=== PATIENT | male | born 1960 | race Caucasian/White ===

== ENCOUNTER 2023-01-08 12:47 | Inpatient (IN) | payer MEDICAID ==
[~2023-01-08] VITALS: Ht 167.6 cm; Wt 87.5 kg
[2023-01-08 13:05] VITALS: BP 154/93; PULSE 102; RESP 20; TEMP 98.7; O2SAT 99
--- NOTE | 2023-01-08 13:10 | NUR ---
pt ambulatory ti bed 01
--- NOTE | 2023-01-08 13:26 | NUR ---
Pt bibs for "feeling sick" (sob, fever, cough) for several weeks. Pt does not see a regular provider and has not taken any medications for current ailments. Pt is a/o x 4, vss (with note to o2 sat), breathing equal and unlabored, speech clear. Pt on monitor awaiting provider.
[2023-01-08 14:08] LABS: BASOPHILS # (AUTO) 0.2 K/uL (0.00-0.22); BASOPHILS % (AUTO) 1.9 % (0.0-2.0); HEMOGLOBIN 9.6 g/dL (12.0-18.0); LYMPHOCYTES # (AUTO) 1.6 K/uL (2.0-11.5); LYMPHOCYTES % (AUTO) 17.1 % (20.5-51.1); MEAN CORPUSCULAR HEMOGLOBIN 37 pg (27-31); MEAN CORPUSCULAR HGB CONC 34 g/dL (33-37); MONOCYTES # (AUTO) 1.3 K/uL (0.8-1.0); MONOCYTES % (AUTO) 13.8 % (1.7-9.3); NEUTROPHILS # (AUTO) 6.4 K/uL (1.8-7.7); NEUTROPHILS % (AUTO) 67.2 % (42.2-75.2); PLATELET COUNT (AUTO) 224 K/uL (140-450); RED BLOOD CELL COUNT(AUTO) 2.59 MIL/uL (4.20-6.10); RED CELL DISTRIBUTION WIDTH 14.9 % (11.6-13.7); WHITE BLOOD COUNT (AUTO) 9.5 K/uL (4.8-10.8)
[2023-01-08 14:32] LABS: ALBUMIN 1.5 g/dL (3.4-5.0); ANION GAP 11.6 (8-16); ASPARTATE AMINOTRANSFERASE 73 U/L (15-37); CARBON DIOXIDE 22.9 mmol/L (21-32); CHLORIDE 102 mmol/L (98-107); CREATININE 1.3 mg/dL (0.6-1.3); GFR ARICAN-AMERICAN 72 mL/min (>90); GLUCOSE 181 mg/dL (74-106); LIPASE 319 U/L (73-393); POTASSIUM 3.5 mmol/L (3.5-5.1); SODIUM SERUM 133 mmol/L (136-145); TOTAL BILIRUBIN 4.4 mg/dL (0.0-1.0); UREA NITROGEN, BLOOD 14 mg/dL (7-18)
[2023-01-08] MEDS ORDERED: cefTRIAXone 1,000 MG in DEXT 5% MINI-BAG PLUS 50 ML IV ONE (14:55)
[2023-01-08] MEDS ORDERED: NACL 0.9% 1,000 ML IV SCH (14:55)
[2023-01-08] MEDS ORDERED: cefTRIAXone 1,000 MG VIAL ONE (15:32)
[2023-01-08] MEDS ORDERED: ONDANSETRON 4 MG/2 ML VIAL IVP PRN (16:45)
[2023-01-08] MEDS ORDERED: HYDROcodone/APAP 5/325 MG 1 TAB TAB PO PRN ×2 (16:45)
--- NOTE | 2023-01-08 17:05 | NUR ---
US at bedside. Pt tolerating well. No complaints at this time. Pt resting in bed. Vss (with note to bp, md aware), breathing equal and unlabored, speech clear, on monitor.
[2023-01-08] MEDS: FUROSEMIDE 40 MG/4 ML VIAL IVP SCH (17:45)
--- NOTE | 2023-01-08 17:55 | NUR ---
Report given to RN Stone. Pt still aware of need for UA but has not urinated. Pt in stable condition. Vss, no ss of acute disress, a/o x 4, breathing equal and unlabored, speech clear. Pt transported by emt.
[2023-01-08 19:00] VITALS: PULSE 100; RESP 18; O2SAT 92
--- NOTE | 2023-01-08 19:30 | NUR ---
RECEIVED REPORT FROM DAY SHIFT RN FOR CONTINUITY OF CARE. PT IS AAOX4 [place] SPEAKER. PT IS ON NC 4L SATING 92%. PT IS AMBULATORY. GAIT STEADY. EDUCATED PT TECHNICAL CABLE JOINTER LIGHT SYSTEM AND ROOM ENVIRONMENT. POC DISCUSSED. WILL CONTINUE TO MONITOR THE PT.
[2023-01-08 20:00] VITALS: BP 130/77; PULSE 93; RESP 18; TEMP 97.3; O2SAT 92
--- NOTE | 2023-01-09 00:30 | NUR ---
OBSERVED PT. PT IS SLEEPING COMFORTABLY IN BED. NOT IN ANY DISTRESS. BREATHING EVEN AND UNLABORED. WILL CONTINUE TO MONITOR THE PT.
[2023-01-09 04:00] VITALS: BP 138/85; PULSE 95; RESP 18; TEMP 97.3; O2SAT 92
--- NOTE | 2023-01-09 04:00 | NUR ---
VITAL SIGNS TAKEN AND STABLE. PT DENIES ANY PAIN. HAS NO COMPLAINS. WILL CONTINUE TO MONITOR THE PT.
[2023-01-09 07:09] LABS: BASOPHILS # (AUTO) 0.1 K/uL (0.00-0.22); BASOPHILS % (AUTO) 1.2 % (0.0-2.0); HEMATOCRIT 25.4 % (36-52); HEMOGLOBIN 8.8 g/dL (12.0-18.0); LYMPHOCYTES # (AUTO) 1.8 K/uL (2.0-11.5); LYMPHOCYTES % (AUTO) 17.1 % (20.5-51.1); MEAN CORPUSCULAR HEMOGLOBIN 37 pg (27-31); MEAN CORPUSCULAR HGB CONC 35 g/dL (33-37); MEAN CORPUSCULAR VOLUME 107.7 fL (80-94); MONOCYTES # (AUTO) 1.5 K/uL (0.8-1.0); MONOCYTES % (AUTO) 14.5 % (1.7-9.3); NEUTROPHILS # (AUTO) 7.1 K/uL (1.8-7.7); NEUTROPHILS % (AUTO) 67.2 % (42.2-75.2); PLATELET COUNT (AUTO) 206 K/uL (140-450); RED BLOOD CELL COUNT(AUTO) 2.36 MIL/uL (4.20-6.10); RED CELL DISTRIBUTION WIDTH 14.8 % (11.6-13.7); WHITE BLOOD COUNT (AUTO) 10.5 K/uL (4.8-10.8)
--- NOTE | 2023-01-09 07:12 | NUR ---
ENDORSED PT TO DAY SHIFT RN FOR CONTINUITY OF CARE. PT IS STABLE.
--- NOTE | 2023-01-09 07:13 | NUR ---
RECEIVED PT FROM HIMS CODER NURSE FOR CONTINUITY OF CARE. PT IS AWAKE, AOX4 AMBULATING IN ROOM. RESPIRATIONS EVEN AND UNLABORED ON RA O2 SATURATING 93%. NO DISTRESS NOTED. SKIN WARM AND DRY, ABDOMEN DISTENDED ON UL AND UR QUADRANT, LL AND LR QUADRANT SOFT. PT DENIES PAIN AT THIS TIME. IV ON R F/A 20G, SL. CALL LIGHT WITHIN REACH, ALL SAFETY PRECAUTIONS IN PLACE.
[2023-01-09 07:27] LABS: ANION GAP 10.8 (8-16); CARBON DIOXIDE 22.8 mmol/L (21-32); CREATININE 1.1 mg/dL (0.6-1.3); POTASSIUM 3.6 mmol/L (3.5-5.1)
[2023-01-09 08:00] VITALS: BP 144/88; PULSE 98; RESP 18; TEMP 97.7; O2SAT 92; O2SAT 93
--- NOTE | 2023-01-09 08:00 | NUR ---
Patient's Plan of Care was discussed and reviewed with DE ALCOHOLIZER: RUBENS
[2023-01-09 08:08] LABS: HEPATITIS A ANTIBODY IGM Negative (Negative); HEPATITIS B CORE AB TOTAL Negative (Negative); HEPATITIS B SURFACE ANTIBODY Non Reactive (.); HEPATITIS B SURFACE ANTIGEN Negative (Negative)
[2023-01-09] MEDS: ENOXAPARIN 40 MG/0.4 ML SYR SUBQ SCH (08:44)
[2023-01-09] MEDS: FUROSEMIDE 40 MG/4 ML VIAL IVP SCH ×2 (10:07→17:33)
[2023-01-09 16:00] VITALS: BP 143/82; PULSE 103; RESP 20; TEMP 99.5; O2SAT 94
[2023-01-09 18:43] LABS: APPEARANCE,URINE CLEAR (CLEAR); BILIRUBIN,URINE NEGATIVE (NEGATIVE); BLOOD, URINE 3+ (NEGATIVE); COLOR,URINE YELLOW (YELLOW); LEUKOCYTE ESTERASE ,URINE NEGATIVE (NEGATIVE); NITRITE, URINE NEGATIVE (NEGATIVE); UGLUCOSE NEGATIVE (NEGATIVE)
--- NOTE | 2023-01-09 19:15 | NUR ---
ENDORSED PT TO SQUEEGEE OPERATOR NURSE FOR CONTINUITY OF CARE. PT IS STABLE.
[2023-01-09 19:19] LABS: TRICHOMONAS,URINE None Seen /HPF (None Seen); YEAST,URINE None Seen /HPF (None Seen)
--- NOTE | 2023-01-09 19:30 | NUR ---
RECEIVED REPORT FROM DAY SHIFT NURSE FOR CONTINUITY OF CARE. PT IS AAOX4 CITIZEN OF [place] SPEAKER. PT IS ON NC 3L SATING 94%. PT IS AMBULATORY. GAIT STEADY. DENIES ANY PAIN AND SOB. SKIN WARM AND DRY. POC DISCUSSED. WILL CONTINUE TO MONITOR THE PT.
[2023-01-09 20:00] VITALS: PULSE 98; RESP 18; RESP 20; O2SAT 93; O2SAT 94
[2023-01-10] VITALS (7 sets, daily range): BP systolic 126–139; BP diastolic 80–88; PULSE 89–105; RESP 18–20; TEMP 97.8–99.8; O2SAT 93–100
--- NOTE | 2023-01-10 00:30 | NUR ---
OBSERVED PT. PT IS SLEEPING COMFORTABLY IN BED. NOT IN ANY DISTRESS. BREATHING EVEN AND UNLABORED. SAFETY MEASURES TAKEN. WILL CONTINUE TO MONITOR THE PT.
--- NOTE | 2023-01-10 04:00 | NUR ---
VITAL SIGNS TAKEN AND STABLE. NO COMPLAINS FROM PT. DENIES ANY PAIN. WILL CONTINUE TO MONITOR.
[2023-01-10 07:03] LABS: BASOPHILS # (AUTO) 0.2 K/uL (0.00-0.22); BASOPHILS % (AUTO) 2.5 % (0.0-2.0); HEMATOCRIT 24.8 % (36-52); HEMOGLOBIN 8.7 g/dL (12.0-18.0); LYMPHOCYTES # (AUTO) 1.7 K/uL (2.0-11.5); MEAN CORPUSCULAR HEMOGLOBIN 38 pg (27-31); MEAN CORPUSCULAR HGB CONC 35 g/dL (33-37); MEAN CORPUSCULAR VOLUME 107.7 fL (80-94); MONOCYTES # (AUTO) 1.4 K/uL (0.8-1.0); NEUTROPHILS # (AUTO) 5.2 K/uL (1.8-7.7); PLATELET COUNT (AUTO) 192 K/uL (140-450); RED CELL DISTRIBUTION WIDTH 14.7 % (11.6-13.7); WHITE BLOOD COUNT (AUTO) 8.5 K/uL (4.8-10.8)
--- NOTE | 2023-01-10 07:17 | NUR ---
ENDORSED PT TO DAY SHIFT RN FOR CONTINUITY OF CARE. PT IS STABLE.
--- NOTE | 2023-01-10 07:18 | NUR ---
RECEIVED PT FROM RAW SAMPLER NURSE FOR CONTINUITY OF CARE. PT IS AWAKE, AOX4. PT SITTING AT BED. ON 3L VIA NC. NO SOB, PT DENIES PAIN. SKIN WARM AND DRY. IV ON R F/A 20G, SL. CALL LIGHT WITHIN REACH. ALL SAFETY PRECAUTIONS IN PLACE.
--- NOTE | 2023-01-10 07:30 | NUR ---
RECEIVED PT ON 3L NASAL CANNULA. SATURATION 97%. NO SOB. EQUAL CHEST RISE, CLEAR BREATH SOUNDS. PT REST COMFORTABLY. WILL CONTINUE TO MONITOR.
[2023-01-10 07:33] LABS: ALBUMIN 1.3 g/dL (3.4-5.0); ANION GAP 11.9 (8-16); CREATININE 1.3 mg/dL (0.6-1.3); TOTAL BILIRUBIN 3.3 mg/dL (0.0-1.0)
[2023-01-10 07:39] LABS: LYMPHOCYTES % (AUTO) 19.9 % (20.5-51.1); MONOCYTES % (AUTO) 16.5 % (1.7-9.3); NEUTROPHILS % (AUTO) 61.1 % (42.2-75.2)
[2023-01-10 07:44] LABS: POTASSIUM 2.9 mmol/L (3.5-5.1)
--- NOTE | 2023-01-10 08:00 | NUR ---
Patient's Plan of Care was discussed and reviewed with HR PAYROLL COORDINATOR: RUBENS
[2023-01-10] MEDS ORDERED: POTASSIUM CHLORIDE 40 MEQ, LIDOCAINE 1% 25 MG in NACL 0.9% 250 ML IV ONE (08:10)
[2023-01-10] MEDS: ENOXAPARIN 40 MG/0.4 ML SYR SUBQ SCH (08:47)
--- NOTE | 2023-01-10 08:55 | NUR ---
PATIENT HAS BEEN SCREENED AND CATEGORIZED MODERATE NUTRITION RISK. PATIENT WILL BE SEEN WITHIN 3-5 DAYS OF ADMISSION. 01/08/23-01/13/[address]
[2023-01-10] MEDS ORDERED: POTASSIUM CHLORIDE 40 MEQ, LIDOCAINE 1% 25 MG in NACL 0.9% 250 ML IV SCH (09:00)
[2023-01-10] MEDS: FUROSEMIDE 40 MG/4 ML VIAL IVP SCH ×2 (10:20→17:14)
[2023-01-10] MEDS ORDERED: KCL 20 MEQ IN 100 mL PREMIX 200 ML IV ONE (11:00)
--- NOTE | 2023-01-10 19:29 | NUR ---
ENDORSED PT TO ZINC PLATER NURSE FOR CONTINUITY OF CARE. PT IS STABLE.
--- NOTE | 2023-01-10 19:29 | NUR ---
RECEIVED ENDORSEMENT FROM DAY SHIFT NURSE. PT IS AWAKE AND ALERT, ABLE TO VERBALIZED NEEDS. PT DENIES OF PAIN. SKIN INTACT. IV SITE IS ON RIGHT FOREARM 20G.
--- NOTE | 2023-01-11 00:15 | NUR ---
PT SLEEPS WELL, NO FACIAL GRIMACING. PT IS WITH O2 INHALATION AT 3 LPM. NO SOB OR DISTRESS.
[2023-01-11 04:00] VITALS: BP 147/78; PULSE 90; RESP 18; TEMP 98.4; O2SAT 92
[2023-01-11 06:08] LABS: BASOPHILS # (AUTO) 0.2 K/uL (0.00-0.22); BASOPHILS % (AUTO) 2.3 % (0.0-2.0); EOSINOPHILS % (AUTO) 0.1 % (0.0-4.0); HEMATOCRIT 25.7 % (36-52); HEMOGLOBIN 9.1 g/dL (12.0-18.0); LYMPHOCYTES # (AUTO) 1.8 K/uL (2.0-11.5); LYMPHOCYTES % (AUTO) 18.7 % (20.5-51.1); MEAN CORPUSCULAR HEMOGLOBIN 38 pg (27-31); MEAN CORPUSCULAR HGB CONC 35 g/dL (33-37); MEAN CORPUSCULAR VOLUME 107.7 fL (80-94); MONOCYTES # (AUTO) 1.7 K/uL (0.8-1.0); NEUTROPHILS # (AUTO) 5.8 K/uL (1.8-7.7); NEUTROPHILS % (AUTO) 60.9 % (42.2-75.2); PLATELET COUNT (AUTO) 187 K/uL (140-450); RED BLOOD CELL COUNT(AUTO) 2.38 MIL/uL (4.20-6.10); RED CELL DISTRIBUTION WIDTH 14.7 % (11.6-13.7); WHITE BLOOD COUNT (AUTO) 9.6 K/uL (4.8-10.8)
[2023-01-11 06:16] LABS: ANION GAP 10.7 (8-16); CARBON DIOXIDE 24.1 mmol/L (21-32); CREATININE 1.2 mg/dL (0.6-1.3)
[2023-01-11 06:22] LABS: POTASSIUM 2.8 mmol/L (3.5-5.1)
--- NOTE | 2023-01-11 06:30 | NUR ---
RECEIVED MESSAGE FROM LAB FOR POTASSIUM RESULTS OF 2.8.
[2023-01-11] MEDS ORDERED: ALBUTEROL SULFATE/IPRATROPIU 3 ML SOL IH PRN (06:40)
--- NOTE | 2023-01-11 06:55 | NUR ---
MESSAGE DR. BARON FOR POTASSIUM RESULT 2.8. WAITING FOR REPLY.
[2023-01-11 07:39] VITALS: PULSE 90; RESP 20; O2SAT 94
--- NOTE | 2023-01-11 07:39 | NUR ---
RECEIVED ON SUPPLEMENTAL OXYGEN AT 4 LPM VIA NC SATURATION 94%; C/O SOB HHN PRN THERAPY GIVEN; POST THERAPY ADDED HUMIDIFIER
--- NOTE | 2023-01-11 07:50 | NUR ---
TOLERATED INCENTIVE SPIROMETRY THERAPY WELL WITHOUT COMPLICATIONS ENCOURAGED PATIENT TO USE INCENTIVE SPIROMETRY EVERY 1-2 HOURS WHILE AWAKE
[2023-01-11 08:00] VITALS: PULSE 105; RESP 20; O2SAT 95; O2SAT 96
[2023-01-11] MEDS ORDERED: KCL 20 MEQ IN 100 mL PREMIX 200 ML IV SCH (08:15)
[2023-01-11] MEDS ORDERED: POTASSIUM CHLORIDE 10 MEQ TABER PO SCH (08:15)
[2023-01-11] MEDS: ENOXAPARIN 40 MG/0.4 ML SYR SUBQ SCH (08:26)
[2023-01-11] MEDS: SPIRONOLACTONE 50 MG TAB PO SCH (08:28)
[2023-01-11] MEDS: FUROSEMIDE 40 MG TAB PO SCH (08:28)
--- NOTE | 2023-01-11 13:27 | NUR ---
DC PLANNIN YRS OLD MALE PATIENT WAS ADMITTED FROM HOME WITH A DX OF GENERALIZE WEAKNESS, NEW ONSET OF HEART FAILURE. PATIENT HAS NO MEDICAL HX. CXR SHOWED LOW LUNG VOLUMES WITH BILATERAL EDEMA/INFILTRATES. ABDOMINAL US SHOWED HEPATIC CIRRHOSIS AND PERIHEPATIC ASCITES AND MULTIPLE SMALL HEPATIC MASSES. RAPID COVID TEST NEGATIVE. INFLUENZA A&B ARE POSITIVE. ADMINISTERED IV ABX ROCEPHIN . SEEN BY ELECTRONIC CONTROLS REPAIRER SUPERVISOR GI AND ID. DC PLAN TO FOLLOW UP WITH OUT PT ONCOLOGIST. CM TO FOLLOW Addendum: 01/12/23 at 1351 by Cynthia Velez RN DC PLANNING: CM CALLED DR AMARO'S OFFICE FOR FOLLOW UP VISIT PER MEDICAL INFORMATION SPECIALIST STATED THEY DON'T TAKE MEDICAL PE AND RECOMMENDED TO SET UP OUTPT FOLLOW U. CM CALLED [facility] STATED TO SCHEDULE THE APPOINTMENT PATIENT HAS TO BE DISCHARGED AND TO CALL TO MAKE APPOINTMENT. PROVIDE THE NUMBER TO THE PATIENT [phone] CM TO FOLLOW Addendum: 01/12/23 at 1452 by PAULO BHANDARI CM [facility] FOLLOW UP APPOINTMENT WITH [facility] LOCATED AT [address] [place] [id number]. SPOKE WITH MYNOR WHO GAVE ME AN APPOINTMENT FOR 01/14/2023 AT 1030. WENT TO BEDSIDE TO GIVE APPOINTMENT SLIP AND [facility] NUMBER INFORMING HIM THAT ONCE DISCHARGED HE HAS TO CALL AND MAKE APPOINTMENT HIM SELF PER MIKE [facility]CADA.
--- NOTE | 2023-01-11 13:53 | NUR ---
01/11/23 RD INITIAL ASSESSMENT COMPLETED PLEASE REFER TO NUTRITION ASSESSMENT UNDER CARE ACTIVITY FOR ESTIMATED NUTRITIONAL NEEDS. 1. CONTINUE CARDIAC DIET TOLERATED 2. RD WILL MONITOR PO INTAKE, WEIGHTS, GI SYMPTOMS AND SKIN INTEGRITY. 3. RD TO FOLLOW-UP 3-5 DAYS, MODERATE RISK MERISSA MCINTYRE, RD
[2023-01-11 16:00] VITALS: BP 124/71; PULSE 64; RESP 18; TEMP 97.3; O2SAT 97
[2023-01-11 19:19] VITALS: O2SAT 100
--- NOTE | 2023-01-11 19:20 | NUR ---
RECEIVED PT ON BED AWAKE, ALERT AND VERBALLY RESPONSIVE. PT VERBALIZED OF MILD, TOLERABLE PAIN ON EPIGASTRIC AREA. NO EDEMA ON BLE & BUE.
[2023-01-11 19:23] LABS: ANION GAP 12.3 (8-16); CARBON DIOXIDE 23.3 mmol/L (21-32); CREATININE 1.3 mg/dL (0.6-1.3); POTASSIUM 3.6 mmol/L (3.5-5.1)
[2023-01-11 20:00] VITALS: BP 148/79; PULSE 100; RESP 20; TEMP 101.1; O2SAT 94
--- NOTE | 2023-01-11 20:36 | NUR ---
PT HAS ELEVATED TEMP OF 101.1, REPORTED TO DR. BARON. NO NEW ORDER. APPLY COOLING MEASURES TO PT AND ENCOURAGE TO DRINK MORE.
--- NOTE | 2023-01-11 21:10 | NUR ---
CHECKED BODY TEMP = 100.7
--- NOTE | 2023-01-11 21:40 | NUR ---
BODY TEMP CHECKED = 99.6
--- NOTE | 2023-01-11 22:18 | NUR ---
PT VERBALIZED PAIN ON ABDOMINAL AND EPIGASTRIC AREA /10, PAIN MEDICATION NORCO 1 TAB ADMINISTERED ORDER.
[2023-01-11] MEDS ORDERED: ACETAMINOPHEN EXTRA STRENGTH 500 MG TAB PO PRN (22:35)
--- NOTE | 2023-01-11 23:18 | NUR ---
REASSESSMENT OF PAIN, PT ASLEEP, NO FACIAL GRIMACING
[2023-01-12] VITALS (7 sets, daily range): BP systolic 135–153; BP diastolic 75–87; PULSE 81–96; RESP 17–20; TEMP 97.7–98.7; O2SAT 93–98
--- NOTE | 2023-01-12 00:20 | NUR ---
PT BODY TEMP = 98.2
--- NOTE | 2023-01-12 04:00 | NUR ---
BODY TEMP = 98.5
--- NOTE | 2023-01-12 06:00 | NUR ---
BODY TEMP = 98.2. PT VERBALIZED ABLE TO SLEEP GOOD.
[2023-01-12 06:56] LABS: ANION GAP 9.8 (8-16); CARBON DIOXIDE 23.5 mmol/L (21-32); CREATININE 1.2 mg/dL (0.6-1.3); POTASSIUM 3.3 mmol/L (3.5-5.1)
[2023-01-12 07:00] LABS: BASOPHILS # (AUTO) 0.2 K/uL (0.00-0.22); BASOPHILS % (AUTO) 1.5 % (0.0-2.0); HEMATOCRIT 23.7 % (36-52); HEMOGLOBIN 8.2 g/dL (12.0-18.0); LYMPHOCYTES # (AUTO) 2.3 K/uL (2.0-11.5); LYMPHOCYTES % (AUTO) 18.6 % (20.5-51.1); MEAN CORPUSCULAR HEMOGLOBIN 38 pg (27-31); MEAN CORPUSCULAR HGB CONC 34 g/dL (33-37); MONOCYTES # (AUTO) 2.4 K/uL (0.8-1.0); MONOCYTES % (AUTO) 19.2 % (1.7-9.3); NEUTROPHILS # (AUTO) 7.6 K/uL (1.8-7.7); NEUTROPHILS % (AUTO) 60.7 % (42.2-75.2); PLATELET COUNT (AUTO) 179 K/uL (140-450); RED BLOOD CELL COUNT(AUTO) 2.18 MIL/uL (4.20-6.10); RED CELL DISTRIBUTION WIDTH 15.1 % (11.6-13.7); WHITE BLOOD COUNT (AUTO) 12.5 K/uL (4.8-10.8)
--- NOTE | 2023-01-12 07:20 | NUR ---
PT IS ON STABLE CONDITION, SAFETY MEASURES ARE IN PLACE, ENDORSE TO DAY SHIFT NURSE FOR CONTINUITY OF CARE.
--- NOTE | 2023-01-12 07:21 | NUR ---
RECEIVED PT FROM TREASURY ANALYST NURSE FOR CONTINUITY OF CARE. PT IS AWAKE, AOX4. ABLE TO VERBALIZE NEEDS. ON 3L NC SATURATING AT 97%. NO DISTRESS NOTED. SKIN WARM AND DRY TO TOUCH. ABDOMEN DISTENDED. PT DENIES ANY PAIN. IV ON R F/A 20G, SL. CALL LIGHT WITHIN REACH, ALL SAFETY PRECAUTIONS IN PLACE.
[2023-01-12 07:23] LABS: PROTHROMBIN TIME 15.6 secs (10.8-13.4)
--- NOTE | 2023-01-12 07:56 | NUR ---
ROUNDED ON PT. NO DISTRESS NOTED. VITALS WERE GOOD PT AWAKE AND ALERT. WILL CONTINUE TO MONITOR.
--- NOTE | 2023-01-12 08:04 | NUR ---
RT CALLED PT NOW ON 2L NC, O2 SATURATING 96%.
[2023-01-12] MEDS ORDERED: POTASSIUM CHLORIDE 10 MEQ TABER PO SCH (08:17)
[2023-01-12] MEDS: SPIRONOLACTONE 50 MG TAB PO SCH (08:28)
[2023-01-12] MEDS: FUROSEMIDE 40 MG TAB PO SCH (08:29)
--- NOTE | 2023-01-12 08:30 | NUR ---
SCHEDULED MORNING MEDS GIVEN, LOVENOX HELD DUE TO SCHEDULED PROCEDURE TODAY.
[2023-01-12] MEDS: ENOXAPARIN 40 MG/0.4 ML SYR SUBQ SCH (08:38)
[2023-01-12] MEDS: PIPERACILLIN/TAZOBACTAM 3.375 GM in DEXTROSE 5% 50 ML IV SCH ×2 (13:00→20:03)
--- NOTE | 2023-01-12 19:05 | NUR ---
ENDORSE PT TO CAUSTIC STRENGTH INSPECTOR NURSE FOR CONTINUITY OF CARE. PT IS STABLE.
--- NOTE | 2023-01-12 19:05 | NUR ---
RECEIVED PT IN BED ASLEEP, EASILY AROUSABLE BY VERBAL STIMULI. DENIES PAIN AT THIS TIME. NO RESPIRATORY DISTRESS. SKIN WARM AND DRY TO TOUCH. SAFETY PRECAUTIONS IN [place], CALL LIGHT IN REACH, ENCOURAGED TO CALL IF ASSISTANCE IS NEEDED, PT VERBALLY ACKNOWLEDGED.
[2023-01-12] MEDS: OSELTAMIVIR PHOSPHATE 75 MG CAP PO SCH (20:03)
[2023-01-12 20:38] LABS: APPEARANCE,SPUN,BODY FLUID CLEAR (CLEAR); APPEARANCE,UNSPUN,BODY FLUID CLEAR (CLEAR); COLOR,BODY FLUID YELLOW (LT YELLOW); SPECIMENTYPE,BODY FLUID PARACENTESIS
[2023-01-12 20:39] LABS: RBC, BODY FLUID 90 /cu. mm.; TOTAL VOLUME,BODY FLUID 3300 mL; WBC, BODY FLUID 18 /cu. mm.
[2023-01-12 20:46] LABS: POLYNUCLEAR, BODY FLUID 39 %
[2023-01-12 21:15] LABS: GLUCOSE,BODY FLUID 135 mg/dL
--- NOTE | 2023-01-13 00:08 | NUR ---
PATIENT IS ASLEEP. NO S/SX OF PAIN NOR DISCOMFORT. CALL LIGHT WITHIN REACH.
[2023-01-13 04:00] VITALS: BP 127/64; PULSE 99; RESP 18; TEMP 97.2; O2SAT 95
[2023-01-13] MEDS: PIPERACILLIN/TAZOBACTAM 3.375 GM in DEXTROSE 5% 50 ML IV SCH ×2 (04:19→13:26)
--- NOTE | 2023-01-13 06:22 | NUR ---
PATIENT IS ASLEEP. NO DISTRESS. ALL NEEDS ATTENDED TO. SAFETY PRECAUTIONS MAINTAINED DURING THE SHIFT, CALL LIGHT REMAINS WITHIN REACH.
[2023-01-13 06:51] VITALS: O2SAT 95
--- NOTE | 2023-01-13 06:52 | NUR ---
PT CURRENTLY ON 2L NASAL CANNULA. SATURATION 95%. EQUAL CHEST RISE, CLEAR BREATH SOUNDS. NO DISTRESS NOTED. WILL CONTINUE TO MONITOR.
--- NOTE | 2023-01-13 07:35 | NUR ---
RECEIVED PATIENT FROM PM NURSE FOR CONTINUATION OF CARE. PATIENT SEEN IN BED ASLEEP NORMAL RISE AND FALL OF CHEST. DROPLET ISOLATION OBSERVED.
[2023-01-13] MEDS ORDERED: FURO-572 PO (07:48)
[2023-01-13] MEDS ORDERED: SPIR50TA PO (07:48)
[2023-01-13] MEDS ORDERED: TAM75 PO (07:50)
[2023-01-13] MEDS ORDERED: AMOX-1230 PO (07:50)
[2023-01-13 08:00] VITALS: PULSE 94; RESP 18; TEMP 99.7; O2SAT 92
[2023-01-13 08:59] LABS: ANION GAP 12.4 (8-16); CARBON DIOXIDE 23.5 mmol/L (21-32); CREATININE 1.3 mg/dL (0.6-1.3); POTASSIUM 3.9 mmol/L (3.5-5.1)
[2023-01-13] MEDS: OSELTAMIVIR PHOSPHATE 75 MG CAP PO SCH (09:00)
[2023-01-13] MEDS: ENOXAPARIN 40 MG/0.4 ML SYR SUBQ SCH (09:00)
[2023-01-13] MEDS: SPIRONOLACTONE 50 MG TAB PO SCH (09:00)
[2023-01-13] MEDS: FUROSEMIDE 40 MG TAB PO SCH (09:00)
[2023-01-13 09:07] LABS: PROTHROMBIN TIME 14.8 secs (10.8-13.4)
--- NOTE | 2023-01-13 13:01 | NUR ---
PT EATING AND TALKING ON HIS PHONE. NO DISTRESS NOTED. 94% ON 2L NASAL CANNULA. WILL CONTINUE TO MONITOR.
--- NOTE | 2023-01-13 14:00 | NUR ---
PATIENT ABLE TO TOLERATE ROOM AIR WITH NORMAL V/S SIGNS. MD STATES TO PROCEED WITH DISCHARGE
[2023-01-13 14:30] VITALS: BP 127/82; PULSE 94; RESP 19; TEMP 98
== END 2023-01-13 15:00 | disposition home or self-care (01) | DRG 720 ==
LOC: MED 12:47 → MMU 16:45 → MTU 17:30
PROVIDERS: ADMIT Internal Medicine; ATTEND Internal Medicine
PROC: 0W9G3ZZ Drainage of Peritoneal Cavity, Percutaneous Approach (ICD-10-PCS; principal; 2023-01-12)
PROC: 0W993ZZ Drainage of Right Pleural Cavity, Percutaneous Approach (ICD-10-PCS; 2023-01-13)
DX: A41.9 Sepsis, unspecified organism (principal); J96.01 Acute respiratory failure with hypoxia; J81.1 Chronic pulmonary edema; K76.6 Portal hypertension; K70.31 Alcoholic cirrhosis of liver with ascites; C22.8 Malignant neoplasm of liver, primary, unspecified as to type; E44.0 Moderate protein-calorie malnutrition; J10.1 Influenza due to other identified influenza virus with other respiratory manifestations; F10.10 Alcohol abuse, uncomplicated; Y90.9 Presence of alcohol in blood, level not specified; Z20.822 Contact with and (suspected) exposure to COVID-19; Z68.31 Body mass index [BMI] 31.0-31.9, adult
CPT/HCPCS: 36415; 49083; 71045; 71250; 76604; 76705; 76942; 80048; 80053; 81001; 82105; 82378; 82945; 83605; 83690; 83735; 83880; 84157; 84484; 85025; 85610; 85730; 86704; 86706; 86708; 86709; 86803; 87040; 87070; 87075; 87081; 87086; 87205; 87340; 89051; 93005; 94010; 94640; 96374; 99285; J0696; J1650; J1940; J2001; J2543; J3480; J7030; J7060; Q0092